=== PATIENT | female | born 1980 | race American Indian/Alaskan Native ===

== ENCOUNTER 2019-09-27 06:08 | Emergency (ER) | payer OTHER ==
[~2019-09-27] VITALS: Ht 172.7 cm; Wt 90.0 kg
[2019-09-27 06:10] VITALS: BP 118/74
== END 2019-09-27 07:00 | disposition home or self-care (01) ==
LOC: ER 06:09
DX: S06.0X0A Concussion without loss of consciousness, initial encounter (principal); Z88.1 Allergy status to other antibiotic agents; R09.89 Other specified symptoms and signs involving the circulatory and respiratory systems; Y04.2XXA Assault by strike against or bumped into by another person, initial encounter; Y93.89 Activity, other specified; Y92.89 Other specified places as the place of occurrence of the external cause; Y99.8 Other external cause status
CPT/HCPCS: 99281; 99283